=== PATIENT | female | born 1965 | race Caucasian/White ===

== ENCOUNTER 2021-08-06 18:06 | Emergency (ER) | payer OTHER ==
[~2021-08-06 18:06] MED LIST: CATAPRES 0.1MG0.1 MG PO; CATAPRES0.2 MG PO; HYDROXYZINE HCL25 MG PO; MACROBID 100 M100 MG PO; MECLIZINE HCL25 MG PO
[2021-08-06 19:47] LABS: RED BLOOD COUNT 4.04 M/UL (4.00-5.10); WHITE BLOOD COUNT 7.2 K/UL (4.5-11.0)
[2021-08-06] MEDS ORDERED: CYCLOBENZAPRINE10 MG PO (21:54)
== END 2021-08-06 22:00 | disposition home or self-care (01) ==
LOC: ER1 18:06
PROVIDERS: Emergency Medicine
DX: R10.2 Pelvic and perineal pain (principal)
CPT/HCPCS: 80048; 80307; 81001; 83605; 85025; 96372; 96374; 96375; 99284; J2270; J2360; J2405

== ENCOUNTER 2022-01-02 16:18 | Emergency (ER) | payer OTHER ==
[~2022-01-02 16:18] MED LIST changes: +CYCLOBENZAPRINE10 MG PO
[2022-01-02 16:42] LABS: HEMOGLOBIN 11.8 gm/dl (12.3-15.3); RED BLOOD COUNT 3.93 M/UL (4.00-5.10); WHITE BLOOD COUNT 5.7 K/UL (4.5-11.0)
[2022-01-02] MEDS ORDERED: PYRIDIUM200 MG PO (20:35)
[2022-01-02] MEDS ORDERED: ZOFRAN 4 MG TAB4 MG PO (20:35)
[2022-01-02] MEDS ORDERED: BACTRIM DS TAB1 EACH PO (20:35)
[2022-01-02] MEDS ORDERED: MIRALAX17 GM PO (20:35)
== END 2022-01-02 20:52 | disposition home or self-care (01) ==
LOC: ER1 16:18
DX: N39.0 Urinary tract infection, site not specified (principal); K59.00 Constipation, unspecified; Z88.0 Allergy status to penicillin; Z87.448 Personal history of other diseases of urinary system
CPT/HCPCS: 80053; 81001; 83605; 83690; 85025; 87086; 93005; 96374; 96375; 99284; J2270; J2405; Q9967

== ENCOUNTER 2022-01-22 15:34 | Emergency (ER) | payer OTHER ==
[~2022-01-22 15:34] MED LIST changes: +BACTRIM DS TAB1 EACH PO; +MIRALAX17 GM PO; +PYRIDIUM200 MG PO; +ZOFRAN 4 MG TAB4 MG PO
== END 2022-01-22 19:36 | disposition home or self-care (01) ==
LOC: ER1 15:34
DX: R30.0 Dysuria (principal); Z87.448 Personal history of other diseases of urinary system; Z88.0 Allergy status to penicillin
CPT/HCPCS: 81001; 87086; 99283

== ENCOUNTER 2022-04-15 10:27 | Emergency (ER) | payer OTHER ==
[2022-04-15 12:54] LABS: HEMOGLOBIN 12.4 gm/dl (12.3-15.3); RED BLOOD COUNT 4.18 M/UL (4.00-5.10); WHITE BLOOD COUNT 5.8 K/UL (4.5-11.0)
[2022-04-15] MEDS ORDERED: CEPHALEXIN500 M1 PO (16:33)
[2022-04-15] MEDS ORDERED: DIFLUCAN150 MG PO (16:33)
[2022-04-15] MEDS ORDERED: DRAMAMINE25 M1 PO (16:34)
== END 2022-04-15 17:20 | disposition home or self-care (01) ==
LOC: ER1 10:27
PROVIDERS: Physician Assistant
DX: R42 Dizziness and giddiness (principal); N39.0 Urinary tract infection, site not specified; E87.6 Hypokalemia; Z90.89 Acquired absence of other organs; Z90.49 Acquired absence of other specified parts of digestive tract
CPT/HCPCS: 70450; 80053; 81001; 82550; 82553; 84484; 85025; 87086; 93005; 96361; 96374; 99284; J0696; Q0177